=== PATIENT | male | born 1950 | race Caucasian/White ===

== ENCOUNTER 2017-03-28 20:01 | Emergency (ER) | payer SELFPAY ==
[~2017-03-28] VITALS: Ht 157.5 cm; Wt 86.3 kg
[2017-03-28] MEDS ORDERED: SODIUM CHLORIDE 0.9% 1,000 ML IV ONE (21:34)
[2017-03-28] MEDS ORDERED: ONDANSETRON HCL 4MG/2ML VIAL IV ONE (21:45)
[2017-03-28] MEDS ORDERED: MECLIZINE 25MG TABLET PO ONE (21:45)
[2017-03-28 22:07] LABS: BASOPHILS % 0.4 % (0.0-2.0); EOSINOPHILS % 1.7 % (0.0-5.0); HEMATOCRIT. 42.7 % (36.0-48.0); HEMOGLOBIN. 15.2 g/dL (12.0-16.0); LYMPHOCYTES % 8.8 % (20.0-50.0); MEAN CORPUSCULAR HEMOGLOBIN 31.5 pg (28.0-32.0); MEAN CORPUSCULAR VOLUME 88.5 fL (81.0-99.0); MEAN PLATELET VOLUME 7.8 fl (7.4-10.4); MONOCYTES % 5.3 % (2.0-8.0); NEUTROPHILS % 83.8 % (40.0-76.0); PLATELET 226 x1000/uL (130-400); RED BLOOD CELL COUNT 4.83 mill/uL (4.2-5.4); RED CELL DISTRIBUTION WIDTH 13.3 % (11.6-14.6)
[2017-03-29 00:13] VITALS: BP 132/74
== END 2017-03-29 00:15 | disposition home or self-care (01) ==
LOC: ER 20:10 → EDSEX 20:10 → ER 03-29 00:15
DX: H81.10 Benign paroxysmal vertigo, unspecified ear (principal); R11.2 Nausea with vomiting, unspecified; I10 Essential (primary) hypertension; R90.82 White matter disease, unspecified; R94.31 Abnormal electrocardiogram [ECG] [EKG]; E11.9 Type 2 diabetes mellitus without complications; E78.00 Pure hypercholesterolemia, unspecified; E07.9 Disorder of thyroid, unspecified
CPT/HCPCS: 36415; 70450; 71010; 80048; 82962; 85025; 93005; 96374; 99285; J2405; J7030; J8597

== ENCOUNTER 2024-10-29 10:54 | Inpatient (IN) | payer MEDICARE, MEDICAID ==
[~2024-10-29] VITALS: Ht 320 cm; Wt 86.2 kg
[~2024-10-29 10:54] MED LIST: CYCL10TA21 MT; IBUP-2029 MT
[2024-10-29 10:56] VITALS: O2SAT 99
[2024-10-29] MEDS: LACTATED RINGERS 1,000 ML IV SCH (11:39)
[2024-10-29] MEDS: ONDANSETRON HCL 4MG/2ML INJ IV ONE (11:39)
[2024-10-29 11:43] LABS: BASOPHILS % 0.5 % (0.0-2.0); EOSINOPHILS % 0.4 % (0.0-5.0); HEMATOCRIT. 36.9 % (42.0-52.0); HEMOGLOBIN. 13.0 g/dL (14.0-18.0); LYMPHOCYTES % 14.4 % (20.0-50.0); MEAN PLATELET VOLUME 8.1 fl (7.4-10.4); MONOCYTES % 6.8 % (2.0-8.0); NEUTROPHILS % 77.9 % (40.0-76.0); PLATELET 186 x1000/uL (130-400); RED BLOOD CELL COUNT 4.15 mill/uL (4.7-6.1); RED CELL DISTRIBUTION WIDTH 13.4 % (11.6-14.6)
[2024-10-29 12:07] LABS: CREATININE 1.1 mg/dL (0.6-1.3); TROPONIN I HIGH SENSITIVITY < 4 ng/L (3.0-53); UREA NITROGEN BLOOD 20 mg/dL (9-23)
[2024-10-29 12:09] LABS: ASPARTATE AMINOTRANSFERASE 17 IU/L (<34); BILIRUBIN DIRECT 0.2 mg/dL (<=3.0)
[2024-10-29 12:10] LABS: BILIRUBIN TOTAL 0.8 mg/dL (0.1-1.0); PROTEIN TOTAL 6.4 g/dL (6.0-8.3)
[2024-10-29] MEDS: INSULIN REGULAR (HUMULIN R) 1000UNITS/10ML VIAL IV ONE (13:12)
[2024-10-29 14:27] VITALS: BP 135/56; PULSE 64; RESP 16; TEMP 35.8; O2SAT 97
[2024-10-29 14:31] VITALS: BP 135/56; PULSE 63; RESP 16; TEMP 35.862
[2024-10-29] MEDS ORDERED: DEXTROSE 50% WATER 50ML SYRINGE IV PRN (16:15)
[2024-10-29] MEDS ORDERED: DOCUSATE SODIUM 100MG CAPSULE PO PRN (16:15)
[2024-10-29] MEDS ORDERED: ONDANSETRON HCL 4MG/2ML INJ IV PRN (16:15)
[2024-10-29] MEDS ORDERED: CLONIDINE 0.1MG TABLET PO PRN (16:15)
[2024-10-29] MEDS ORDERED: ACETAMINOPHEN 325MG TABLET PO PRN ×2 (16:15)
[2024-10-29] MEDS ORDERED: IPRATROPIUM/ALBUTEROL 0.5-3(2.5)MG/3ML NEB HHN PRN (16:15)
[2024-10-29] MEDS: BLOOD SUGAR DIAGNOSTIC STRIP TEST SCH (16:54)
[2024-10-29] MEDS: PNEUMOCOCCAL 20-VAL CONJ-DIP CRM 0.5ML IM ONE (17:15)
[2024-10-29] MEDS: INSULIN LISPRO 100 UNITS/ML SUBCUT SCH (19:25)
[2024-10-29 20:00] VITALS: BP 130/63; PULSE 61; RESP 18; TEMP 37; O2SAT 98
[2024-10-29 22:24] LABS: TROPONIN I HIGH SENSITIVITY < 4 ng/L (3.0-53)
[2024-10-30] VITALS: BP 105/57; PULSE 65; RESP 18; TEMP 36.6; O2SAT 99
[2024-10-30 04:00] VITALS: BP 106/55; PULSE 60; RESP 18; TEMP 36.6; O2SAT 96
[2024-10-30 07:15] LABS: BASOPHILS % 0.3 % (0.0-2.0); EOSINOPHILS % 0.9 % (0.0-5.0); HEMATOCRIT. 36.6 % (42.0-52.0); HEMOGLOBIN. 13.2 g/dL (14.0-18.0); LYMPHOCYTES % 22.5 % (20.0-50.0); MEAN PLATELET VOLUME 8.2 fl (7.4-10.4); MONOCYTES % 7.0 % (2.0-8.0); NEUTROPHILS % 69.3 % (40.0-76.0); PLATELET 200 x1000/uL (130-400); RED BLOOD CELL COUNT 4.10 mill/uL (4.7-6.1); RED CELL DISTRIBUTION WIDTH 13.3 % (11.6-14.6)
[2024-10-30 07:23] LABS: CREATININE 1.1 mg/dL (0.6-1.3)
[2024-10-30 07:24] LABS: LDL CHOLESTEROL 161 mg/dL (5-100); TRIGLYCERIDE 300 mg/dL (0-150); TROPONIN I HIGH SENSITIVITY < 4 ng/L (3.0-53); UREA NITROGEN BLOOD 17 mg/dL (9-23)
[2024-10-30 08:00] VITALS: BP 119/67; PULSE 61; RESP 18; TEMP 36.1; O2SAT 97
[2024-10-30 12:00] VITALS: BP 119/63; PULSE 64; RESP 18; TEMP 36.6; O2SAT 98
[2024-10-30 16:00] VITALS: PULSE 70; RESP 18; TEMP 36.5; O2SAT 95
[2024-10-30 20:00] VITALS: BP 116/72; PULSE 76; RESP 17; TEMP 36.7; O2SAT 98
[2024-10-30 20:01] LABS: *AMPHETAMINES SCREEN URINE NEGATIVE (NEGATIVE); *BARBITURATES SCREEN URINE NEGATIVE (NEGATIVE); *BENZODIAZEPINES SCREEN URINE NEGATIVE (NEGATIVE); *COCAINE SCREEN URINE NEGATIVE (NEGATIVE); CANNABINOID URINE SCREEN NEGATIVE (NEGATIVE); ECSTASY MDMA SCREEN URINE NEGATIVE (NEGATIVE); METHADONE URINE SCREEN NEGATIVE (NEGATIVE); OPIATES URINE SCREEN NEGATIVE (NEGATIVE); PHENCYCLIDINE URINE SCREEN NEGATIVE (NEGATIVE)
[2024-10-30] MEDS: ATORVASTATIN CALCIUM 40MG TABLET PO SCH (22:02)
[2024-10-31] VITALS: BP 111/64; PULSE 68; RESP 18; TEMP 36.6; O2SAT 97
[2024-10-31 04:00] VITALS: BP 120/64; PULSE 61; RESP 19; TEMP 36.6; O2SAT 98
[2024-10-31 08:00] VITALS: BP 128/74; PULSE 80; RESP 18; TEMP 36.4; O2SAT 98
[2024-10-31] MEDS ORDERED: LIP40 PO (15:31)
[2024-10-31] MEDS ORDERED: LEVO25TA7 PO (15:38)
== END 2024-10-31 17:10 | disposition home health service (06) | DRG 311 ==
LOC: ER 10:58 → 6WST 12:20 → EDBEDREQTM 12:41 → EDBEDREQ 12:41 → ENRESERV 13:27
PROVIDERS: ADMIT Family Medicine Adult Medicine; ATTEND Family Medicine Adult Medicine
DX: I24.9 Acute ischemic heart disease, unspecified (principal); E11.649 Type 2 diabetes mellitus with hypoglycemia without coma; R07.9 Chest pain, unspecified; E78.00 Pure hypercholesterolemia, unspecified; I10 Essential (primary) hypertension; E78.5 Hyperlipidemia, unspecified; E03.9 Hypothyroidism, unspecified; Z79.84 Long term (current) use of oral hypoglycemic drugs
CPT/HCPCS: 36415; 71045; 80048; 80061; 80076; 80305; 82010; 82962; 83036; 83735; 84443; 84484; 85025; 93005; 93306; 99285; A4606; J1815; J2405